=== PATIENT | male | born 1945 | race Caucasian/White ===

== ENCOUNTER → 2022-11-12 11:42 | Outpatient (CLI) | payer MEDICARE, OTHER, SELFPAY ==
--- NOTE | 2022-11-12 11:45 | DI.RAD.S_ITS ---
PROCEDURE: XR CHEST 2V INDICATIONS: Cough TECHNIQUE: 2 views of the chest were acquired. COMPARISON: None. FINDINGS: Surgical changes and devices: None. Lungs and pleura: Interstitial markings are prominent in the bibasilar regions. Left lower lobe opacity concerning for early developing pneumonia. No pleural effusions or pneumothorax. Mediastinum: Mediastinal contours are normal. Heart size is normal. Bones and chest wall: No suspicious bony abnormalities. Soft tissues appear unremarkable. IMPRESSION: Right lower lobe developing airspace opacities concerning for early infection. Interstitial prominence may reflect chronic lung disease versus interstitial pneumonia. Dictated by: Ravi Max M.D. on 11/12/2022 at 11:14 Approved by: Ravi Max M.D. on 11/12/2022 at 11:16
== END ==
PROVIDERS: Referring Provider Nurse Practitioner Family; Visit Provider Nurse Practitioner Family
DX: R05.9 Cough, unspecified (principal); J02.9 Acute pharyngitis, unspecified
CPT/HCPCS: 0241U; 71046

== ENCOUNTER → 2022-11-12 11:44 | Outpatient (CLI) | payer MEDICARE, OTHER, SELFPAY ==
[2022-11-12 13:58] LABS: Influenza A - CEPHEID Flu A NEGATIVE (NEGATIVE); Influenza B - CEPHEID Flu B NEGATIVE (NEGATIVE); Respiratory Syncytial Virus Negative (Negative)
[2022-11-12 14:09] LABS: COVID-19 CEPHEID 4-PLEX PCR Negative (Negative)
== END ==
PROVIDERS: Visit Provider Nurse Practitioner Family
DX: J02.9 Acute pharyngitis, unspecified (principal); R05.9 Cough, unspecified
CPT/HCPCS: 0241U